=== PATIENT | female | born 1995 | race Caucasian/White ===

== ENCOUNTER → 2019-04-06 13:43 | Outpatient (BNVA) | payer OTHER, SELFPAY | PROVIDERS: Family Provider Family Medicine; PCP Family Medicine; Visit Provider Obstetrics & Gynecology | DX: Z34.90 Encounter for supervision of normal pregnancy, unspecified, unspecified trimester (principal) | CPT/HCPCS: 36415; 82950; 84315 ==

== ENCOUNTER → 2019-05-06 15:10 | Outpatient (BNVA) | payer OTHER, SELFPAY | PROVIDERS: Family Provider Family Medicine; PCP Family Medicine; Visit Provider Obstetrics & Gynecology | DX: Z01.89 Encounter for other specified special examinations (principal) | CPT/HCPCS: 84315 ==

== ENCOUNTER → 2019-05-11 08:18 | Outpatient (BNVA) | payer OTHER, SELFPAY | PROVIDERS: Family Provider Family Medicine; PCP Family Medicine; Visit Provider Obstetrics & Gynecology | DX: O09.893 Supervision of other high risk pregnancies, third trimester (principal); R73.09 Other abnormal glucose; Z3A.28 28 weeks gestation of pregnancy | CPT/HCPCS: 82951; 82952; 85027 ==

== ENCOUNTER → 2019-05-18 14:56 | Outpatient (BNVA) | payer OTHER, SELFPAY | PROVIDERS: Family Provider Family Medicine; PCP Family Medicine; Visit Provider Obstetrics & Gynecology | DX: Z01.89 Encounter for other specified special examinations (principal) | CPT/HCPCS: 84315 ==

== ENCOUNTER → 2019-05-25 14:16 | Outpatient (BNVA) | payer OTHER, SELFPAY | PROVIDERS: Family Provider Family Medicine; PCP Family Medicine; Visit Provider Obstetrics & Gynecology | DX: Z01.89 Encounter for other specified special examinations (principal) | CPT/HCPCS: 84315 ==

== ENCOUNTER → 2019-06-01 15:05 | Outpatient (BNVA) | payer OTHER, SELFPAY | PROVIDERS: Family Provider Family Medicine; PCP Family Medicine; Visit Provider Obstetrics & Gynecology | DX: O09.893 Supervision of other high risk pregnancies, third trimester (principal); O24.419 Gestational diabetes mellitus in pregnancy, unspecified control | CPT/HCPCS: 76816; 76819; 84315 ==

== ENCOUNTER → 2019-06-08 10:04 | Outpatient (BNVA) | payer OTHER, SELFPAY | PROVIDERS: Family Provider Family Medicine; PCP Family Medicine; Visit Provider Obstetrics & Gynecology | DX: O24.419 Gestational diabetes mellitus in pregnancy, unspecified control (principal); O09.893 Supervision of other high risk pregnancies, third trimester | CPT/HCPCS: 76816; 76819; 84315 ==

== ENCOUNTER → 2019-06-15 14:30 | Outpatient (BNVA) | payer OTHER, SELFPAY | PROVIDERS: Family Provider Family Medicine; PCP Family Medicine; Visit Provider Obstetrics & Gynecology | DX: O09.893 Supervision of other high risk pregnancies, third trimester (principal); O24.419 Gestational diabetes mellitus in pregnancy, unspecified control | CPT/HCPCS: 76816; 76819; 84315 ==

== ENCOUNTER → 2019-06-22 13:02 | Outpatient (BNVA) | payer OTHER, SELFPAY | PROVIDERS: Family Provider Family Medicine; PCP Family Medicine; Visit Provider Obstetrics & Gynecology | DX: O24.419 Gestational diabetes mellitus in pregnancy, unspecified control (principal) | CPT/HCPCS: 76816; 76819; 84315 ==

== ENCOUNTER → 2019-06-29 08:52 | Outpatient (BNVA) | payer OTHER, SELFPAY | PROVIDERS: Family Provider Family Medicine; PCP Family Medicine; Visit Provider Obstetrics & Gynecology | DX: O09.893 Supervision of other high risk pregnancies, third trimester (principal); O24.419 Gestational diabetes mellitus in pregnancy, unspecified control | CPT/HCPCS: 76816; 76819; 84315; 87081 ==

== ENCOUNTER → 2019-07-01 11:25 | Outpatient (BNVA) | payer OTHER, SELFPAY | PROVIDERS: Family Provider Family Medicine; PCP Family Medicine; Visit Provider Obstetrics & Gynecology | DX: O24.419 Gestational diabetes mellitus in pregnancy, unspecified control (principal) | CPT/HCPCS: 76816; 76819 ==

== ENCOUNTER → 2019-07-06 09:31 | Outpatient (BNVA) | payer OTHER, SELFPAY | PROVIDERS: Family Provider Family Medicine; PCP Family Medicine; Visit Provider Obstetrics & Gynecology | DX: O24.410 Gestational diabetes mellitus in pregnancy, diet controlled (principal); O09.893 Supervision of other high risk pregnancies, third trimester; Z3A.37 37 weeks gestation of pregnancy | CPT/HCPCS: 76816; 76819; 84315 ==

== ENCOUNTER → 2019-07-08 08:08 | Outpatient (BNVA) | payer OTHER, SELFPAY | PROVIDERS: Family Provider Family Medicine; PCP Family Medicine; Visit Provider Obstetrics & Gynecology | DX: Z36.89 Encounter for other specified antenatal screening (principal) | CPT/HCPCS: 76816; 76819 ==

== ENCOUNTER → 2019-07-13 08:47 | Outpatient (BNVA) | payer OTHER, SELFPAY | PROVIDERS: Family Provider Family Medicine; PCP Family Medicine; Visit Provider Obstetrics & Gynecology | DX: O24.419 Gestational diabetes mellitus in pregnancy, unspecified control (principal) | CPT/HCPCS: 76816; 76819; 84315 ==

== ENCOUNTER → 2019-07-15 08:11 | Outpatient (BNVA) | payer OTHER, SELFPAY | PROVIDERS: Family Provider Family Medicine; PCP Family Medicine; Visit Provider Obstetrics & Gynecology | DX: O24.419 Gestational diabetes mellitus in pregnancy, unspecified control (principal) | CPT/HCPCS: 76816; 76819 ==

== ENCOUNTER → 2019-07-19 13:20 | Outpatient (BNVA) | payer OTHER, SELFPAY | PROVIDERS: Family Provider Family Medicine; PCP Family Medicine; Visit Provider Obstetrics & Gynecology | DX: O09.893 Supervision of other high risk pregnancies, third trimester (principal); O24.410 Gestational diabetes mellitus in pregnancy, diet controlled | CPT/HCPCS: 76816; 76819 ==

== ENCOUNTER 2019-07-19 15:29 | Inpatient (IN) | payer OTHER, SELFPAY ==
[2019-07-19] VITALS (41 sets, daily range): BP systolic 0–125; BP diastolic 0–84; PULSE 69–122; RESP 16–18; TEMP 36.8; BMI 28.1
[2019-07-19 16:10] LABS: Glucose Point of Care 102 mg/dL (70-110)
[2019-07-19] MEDS: miSOPROStol 100 mcg tablet 25 MCG VAGINAL (16:37)
[2019-07-19 17:57] LABS: Basophils % 0.3 %; Eosinophils # 0.2 10^3/uL (0.0-0.8); Eosinophils % 1.9 %; Hematocrit 37.5 % (37.0-47.0); Hemoglobin 12.7 g/dL (11.5-15.3); Lymphocytes # 2.5 10^3/uL (0.8-4.8); Lymphocytes % 24.5 %; Mean Corpuscular HGB Conc 33.9 g/dL (30.0-36.0); Mean Corpuscular Hemoglobin 29.9 pg (28.0-34.0); Mean Corpuscular Volume 88.2 fL (81-99); Mean Platelet Volume 9.8 fL (7.4-10.4); Monocytes # 0.8 10^3/uL (0.2-0.9); Monocytes % 7.8 %; Neutrophils # 6.8 10^3/uL (1.8-7.7); Neutrophils % 65.1 %; Nucleated Red Blood Cells % 0 %; Platelet Count 256 10^3/cmm (130-400); Red Blood Count 4.25 10^6/uL (4.1-5.3); Red Cell Distribution Width 13.2 % (12.1-15.1); White Blood Count 10.4 10^3/uL (4.0-10.0)
[2019-07-19 19:40] LABS: Glucose Point of Care 113 mg/dL (70-110)
[2019-07-19] MEDS: lactated ringers 1,000 ML 999 ML IV (23:35)
[2019-07-19 23:55] LABS: Glucose Point of Care 81 mg/dL (70-110)
[2019-07-20] VITALS (90 sets, daily range): BP systolic 0–129; BP diastolic 0–91; PULSE 66–118; RESP 16–18; TEMP 36.4–37.2; O2SAT 94–98
[2019-07-20] MEDS: ondansetron 2 mg/ML SDV 2 mL 4 MG IVP (00:54)
[2019-07-20] MEDS: lactated ringers 1,000 ML 999 ML IV (01:05)
--- NOTE | 2019-07-20 01:32 | ANES.PREANE2 ---
Pre-Anesthetic Assessment Pre-Anesthetic Assessment: Height/Weight: Height 1.52 m Weight 65.317 kg Temp Pulse Resp BP 98.2 F 84 18 125/76 07/19/19 22:36 07/20/19 01:23 07/19/19 22:36 07/20/19 01:23 Preop Diagnosis: labor pain Proposed Procedure: epidural Social: Social History: No alcohol and No tobacco Exam: Pre-Anes Outpt Exam: alert, oriented x 3, clear to auscultation bilaterally and regular rate & rhythm Airway: Submandibular: WNL Cervical ROM: WNL MP: 2 Dentition: Full History/ROS: No significant complaints Pulmonary: Pulmonary: None reported CV/HEM: CV/HEM: None reported : : None reported Hepatic: Hepatic: None reported GI: GI: GERD Comments: with but controlled with antacids Metabolic: Comments: gestation diabetic Musc/skel: Musc/skel: None reported Neuropsych: Neuropsych: Anxiety Anesthetic Plan: ASA status: 2 Anesthesia: Eval. for regional block and Regional (specify below) Risk of > 500 ml blood loss (7ml/kg in children): No Meds/Allergies Current Medications: Current Medications Generic Name Dose Route Start Last Admin Trade Name Freq PRN Reason Stop Dose Admin Lactated Ringer's 1,000 mls @ 999 m ls/hr 07/19/19 15:48 07/20/19 01:07 Lactated Ringers IV 999 mls/hr .Q1H1M PRN Infusion Per L&D Rescitati on Protocol Ondansetron HCl 4 mg 07/19/19 15:48 07/20/19 00:54 Zofran IVP 4 mg Q4H PRN Administration NAUSEA AND VOMITI NG PFSH Anesthesia PFSH: Social History Smoking and tobacco status: never smoked Alcohol intake: never Additional social history: Female Reproductive History: : 1 Data Anesthesia CBC & Chem 7: 07/19/19 16:25 Other Labs: Laboratory Results - last 48 hr 07/19/19 07/19/19 07/19/19 16:04 16:25 19:33 WBC 10.4 H RBC 4.25 Hgb 12.7 Hct 37.5 MCV 88.2 MCH 29.9 MCHC 33.9 RDW 13.2 Plt Count 256 MPV 9.8 Neut % (Auto) 65.1 Lymph % (Auto) 24.5 [place] % (Auto) 7.8 Eos % (Auto) 1.9 Baso % (Auto) 0.3 Neut # (Auto) 6.8 Lymph # (Auto) 2.5 [place] # (Auto) 0.8 Eos # (Auto) 0.2 Baso # (Auto) 0.0 Nucleated RBC % (auto) 0 Nucleated RBCs # 0.0 POC Glucose 102 113 07/19/19 23:50 WBC RBC Hgb Hct MCV MCH MCHC RDW Plt Count MPV Neut % (Auto) Lymph % (Auto) [place] % (Auto) Eos % (Auto) Baso % (Auto) Neut # (Auto) Lymph # (Auto) [place] # (Auto) Eos # (Auto) Baso # (Auto) Nucleated RBC % (auto) Nucleated RBCs # POC Glucose 81 Cardiac Studies: No Data to Display
[2019-07-20] MEDS: lactated ringers 1,000 ML 125 ML IV (02:15)
--- NOTE | 2019-07-20 02:20 | P.ANES_ITS ---
Anesthesia Procedures Procedure/Date: 07/20/19 epidural Procedure Narrative: epidural complete, first attempt blood noted in tubing, catheter removed then replaced with negative test dose and aspiration, bolus given, epidural pump initiated with CANE FEEDER education given, vitals taken during procedure using OBIX system and satisfactory throughout, patient admits to decrease pain, report of procedure to OB RN Epidural: Time Out Performed: Yes Consents Signed: Procedure Consent Consent: requested by attending/covering physician, from patient, risks and benefits reviewed and patient agrees to proceed Lumbar Level: L3-L4 Epidural position: sitting Epidural procedure: sterile prep of area, 1% lidocaine to numb the area (3 mL), 18 g needle, negative for paresthesia passed, neg for paresthesia, test dose given, 1.5% xylocaine 1:200k epi (5 mL), 0.2% Ropivacaine bolus ml (5 mL), placed PCEA, no systemic response, sterile dressing applied, L.U.D. no apparent complications and 0.2% Ropiavacaine @ mls/hr (13 mL/hr)
[2019-07-20 04:07] LABS: Glucose Point of Care 93 mg/dL (70-110)
--- NOTE | 2019-07-20 07:56 | PC.NURSE ---
pt pushing staff at bedside
--- NOTE | 2019-07-20 08:57 | P.PCNOB_ITS ---
Delivery Note: Date of delivery: July 20, 2019 Pre-delivery diagnoses: Term at 39+3 weeks. Gestational diabetes. 2 vessel Umbilical cord Post-delivery diagnoses: Same as above Procedure: Spontaneous vaginal delivery Op report anesthesia: Epidural Delivering Physician: Kenrick Chicas M.D. Estimated blood loss (mL): 500 Delivery: The patient was noted to be complete and pushing, so was placed in the dorsal lithotomy position, prepped and draped in the usual sterile fashion for a vaginal delivery. Pt. Noted to have epidural anesthesia. At [] the patient delivered a Viable 39+3 female infant weighing 2945 g with scores of 8 and 9 at one and five minutes, respectively. The vertex was delivered spontaneously over Intact perineum. The patient was asked to push and the head delivered spontaneously in the MARVA position, over an intact perineum. A nuchal cord was checked and 1 noted, and Relieved around head as necessary. The anterior shoulder delivered easily and the posterior shoulder followed. The remainder of the infant was easily delivered and the oropharynx and nasopharynx was bulb suctioned. The infant was noted to have spontaneous cry and spontaneous movement of all four extremities. The cord was clamped x 2 and cut and noted to have 2 arteries and one vein. The was passed to the Mother's abdomen where Nursing personnel were in attendance. Core blood sample was not obtained. The placenta delivered intact Spontaneously and the uterus Was explored. 20 units of Pitocin was placed in the IV bag to firm the uterus. Examination of the cervix and vaginal vault did not reveal any lacerations. A vaginal pack was then placed. Examination of the perineum showed Second-degree Perineal laceration. The Laceration was repaired with 3-0 Vicryl in the normal fashion in a running non locking fashion to reapproximate the laceration in layers. The vaginal pack was then removed. The patient tolerated this procedure well, and recovered in L&D with her infant To the OB kay. All sponge and needle counts were correct. A&P Assessment and plan (1) Term delivered: Status: Acute Coding Level of Care Code Acute Bowling Alley Operator for Chg Fwd Diagnoses Term delivered O80
[2019-07-20] MEDS: oxytocin 30 UNIT/500 ML BAG 500 UNIT IV (09:02)
--- NOTE | 2019-07-20 10:25 | PC.NURSE ---
Pt in lithotomy position, pushing
[2019-07-20] MEDS: benzocaine-menthol 78 gm Canister 1 SPRAY TOPICAL (11:17)
[2019-07-20] MEDS: lanolin oint 7 gm 1 APPLIC TOPICAL (11:17)
[2019-07-20] MEDS: docusate sodium 100 mg Capsule PO (21:19)
[2019-07-20 23:27] LABS: Hematocrit 34.4 % (37.0-47.0); Hemoglobin 11.4 g/dL (11.5-15.3); Mean Corpuscular HGB Conc 33.1 g/dL (30.0-36.0); Mean Corpuscular Hemoglobin 29.4 pg (28.0-34.0); Mean Corpuscular Volume 88.7 fL (81-99); Mean Platelet Volume 9.5 fL (7.4-10.4); Platelet Count 187 10^3/cmm (130-400); Red Blood Count 3.88 10^6/uL (4.1-5.3); Red Cell Distribution Width 13.3 % (12.1-15.1); White Blood Count 15.9 10^3/uL (4.0-10.0)
[2019-07-21 06:10] VITALS: BP 114/86; PULSE 76; RESP 16; TEMP 36.6
--- NOTE | 2019-07-21 07:07 | ANE.PACU2 ---
 Inpatient post-anesthesia follow up: Airway intact: Yes Vital signs: Temperature 97.8 F Pulse Rate 76 Respiratory Rate 16 Blood Pressure 114/86 Pulse Oximetry 98 Oxygen Delivery Me thod Room Air Oxygen Flow Rate Fraction of Inspir ed Oxygen Hydration adequate: Yes Nausea and vomiting: No Mental status: Baseline Additional Comments: no LE weakness, urinating ok, no headaches, no signs of infection at neuraxial site
[2019-07-21] MEDS: docusate sodium 100 mg Capsule PO (08:11)
[2019-07-21] MEDS: prenatal vitamin Capsule 1 CAP PO (08:11)
[2019-07-21 10:42] VITALS: BP 108/75; PULSE 78; RESP 16; TEMP 36.8; O2SAT 98
--- NOTE | 2019-07-21 14:33 | PM.OBGYDC ---
Discharge Providers DIRECTOR OF ADMISSIONS Date of Admission: 07/19/19 15:29 Date of Discharge: 07/21/19 Attending Provider at Admission: Kenrick Chicas MD Attending Provider at Discharge: Kenrick Chicas MD Primary Care Provider: Savage Marinelli DO Diagnoses at Discharge Discharge Diagnosis (1) Term delivered: Status: Acute Problem details: Status post spontaneous vaginal delivery day 1 Reason for Visit Reason for Visit: Reason For Visit: induction Hospital Course Hospital Course: 24-year-old female with an estimated gestational age at 39 weeks 3 days care complicated by gestational diabetes, umbilical cord with 2 vessels and pyelectasis. Admitted to the hospital for induction. 1 Cytotec intravaginally was given shortly after she started with labor and progressed to have a spontaneous vaginal delivery with out complications. observation was uneventful. She is afebrile and hemodynamically stable, tolerating diet well, ambulating without difficulty. Physical Exam Const: COMMON NORMALS: no apparent distress, oriented x3, no limitations, alert and well nourished EXAM LIMITATIONS: no physical limitations GENERAL APPEARANCE: cooperative, comfortable and well kempt NUTRITIONAL APPEARANCE: overweight ORIENTATION/CONSCIOUSNESS: Yes awake HENMT: COMMON NORMALS: normocephalic, head/scalp atraumatic, hearing grossly normal bilaterally and external ears normal HEAD & SCALP: normocephalic and atraumatic FACE & SINUS: normal facial exam EXTERNAL EAR: Yes external ears normal Eye: COMMON NORMALS: PERRL and conjunctivae normal GENERAL EYE: normal appearance of both eyes ALIGNMENT: Yes alignment normal EYELID: eyelids normal CONJUNCTIVA: Yes conjunctivae normal SCLERA: sclerae normal PUPIL: Yes PERRL Neck/C-Spine: COMMON NORMALS: full ROM, supple and thyroid normal GENERAL: Yes normal visual inspection and No JVD THYROID: thyroid normal Lymph: LYMPHATIC: no lymphadenopathy noted Chest: CHEST: Yes symmetrical chest wall rise BREAST/AXILLA INSPECTION: Yes other (Engorged) NIPPLE/AREOLA: Yes nipple discharge Nipple discharge: cloudy Resp: COMMON NORMALS: normal respiratory effort, no retractions and no use of accessory muscles EFFORT & INSPECTION: Yes able to speak in complete sentences Cardio: COMMON NORMALS: regular rate and regular rhythm RATE: regular rate RHYTHM: regular rhythm GI: COMMON NORMALS: normal to inspection, nondistended, normoactive bowel sounds, soft to palpation and non-tender INSPECTION: Yes normal to inspection PALPATION: Yes soft : SPECULUM EXAM - VAGINA: Yes vaginal bleeding Amount: other (Normal lochia) BIMANUAL EXAM - VAGINA & UTERUS: Yes uterus non-tender and Yes uterus enlarged (Below umbilicus.) OB/EXTERNAL & SPECULUM: vaginal bleeding Extremity: COMMON NORMALS: normal to inspection, full ROM, no clubbing, cyanosis or edema, no calf tenderness and no pedal edema Neuro: COMMON NORMALS: oriented x3 SENSORIUM/ORIENTATION: Yes alert SPEECH: speech normal GAIT: Yes normal gait Psych: COMMON NORMALS: mental status grossly normal, thought process normal and speech normal APPEARANCE: Yes grossly normal and Yes well kempt ATTITUDE: Yes calm and Yes engaged ACTIVITY/MOTOR BEHAVIOR: Yes appropriate eye contact SPEECH: Yes normal speech THOUGHT PROCESS: normal thought process THOUGHT CONTENT: Yes normal thought content ATTENTION/CONCENTRATION: Yes attention grossly intact MEMORY/COGNITION: Yes memory grossly intact INSIGHT: insight good JUDGEMENT: judgment good Skin: COMMON NORMALS: no rashes or lesions noted GENERAL SKIN EXAM: no rashes or lesions noted Urinary Catheter Management^: [place]: Cath Placed During This Visit: yes, but has since been removed by the nurse Reason for Continuing Indwelling Catheter: Other Urinary Catheter Date of Insertion: 07/20/19 Urinary Catheter Time of Insertion: 02:35 Date Urinary Catheter Removed: 07/20/19 Time Urinary Catheter Discontinued: 07:15 Discharge Data Data Completed and Pending: Labs from last 24 hours 07/20/19 23:20 WBC 15.9 H RBC 3.88 L Hgb 11.4 L Hct 34.4 L MCV 88.7 MCH 29.4 MCHC 33.1 RDW 13.3 Plt Count 187 MPV 9.5 Vitals: Last Vital Signs Temp 98.2 F 07/21/19 10:42 Pulse 78 07/21/19 10:42 Resp 16 07/21/19 10:42 BP 108/75 07/21/19 10:42 Pulse Ox 98 07/21/19 10:42 Discharge Plan Discharge Patient Disposition: Home, Self-Care Condition: Stable Prescriptions: New ibuprofen 800 mg Tablet 800 mg PO TID Qty: 60 RF: 0 acetaminophen 325 mg Tablet 650 mg PO Q6H PRN (Reason: Mild To Moderate Pain) Qty: 60 RF: 0 ferrous sulfate 325 mg (65 mg iron) tablet 325 mg PO DAILY Qty: 60 RF: 0 Continued prenat.vits,she,[id number] Tablet 1 tab PO DAILY RF: 0 No Action (DME) blood-glucose meter [Blood Glucose Monitoring] Kit See Rx Instructions .ROUTE .MEDSUPPLY Qty: 1 RF: 0 Discharge Diet: Advance as tolerated Discharge Activity: Increase activity as tolerated Patient Instructions: Your Baby (GEN), and the Working Mom (GEN), How to Hold and Breastfeed Your Baby (GEN), and Nipple Soreness (GEN), and Plugged Ducts (GEN), How to Increase Your Milk Supply (GEN), and Your Diet (GEN), OB Discharge Report, OB Food/Drug Interaction Guide, OB Vaginal Deliveries - [facility] Activity Restrictions/Additional Instructions: Pelvic rest for 6 weeks (no sex, no tampons, no vaginal douches). Return to the emergency room if any fever, increased bleeding or pain. Discharge Attestations DIRECTOR OF ADMISSIONS Time Spent in Discharge Care*: greater than 30 min Status at Discharge: Cognitive status at discharge: cognitively intact, Behavioral status at discharge: cooperative, Functional status at discharge: independent ambulation Coding Level of Care Code Acute Ceramic Artist for g Fwd Exam Comprehensive Diagnoses Term delivered O80
[2019-07-21 15:56] VITALS: BP 112/77; PULSE 86; RESP 18; TEMP 36.7; O2SAT 98
[2019-07-21 16:20] VITALS: BP 112/77; PULSE 86; RESP 18; TEMP 36.7; O2SAT 98
== END 2019-07-21 16:20 | disposition home or self-care (01) | DRG 807 ==
PROVIDERS: Admitting Provider Obstetrics & Gynecology; Family Provider Family Medicine; PCP Family Medicine; Visit Provider Obstetrics & Gynecology
DX: O24.420 Gestational diabetes mellitus in childbirth, diet controlled (principal); Z37.0 Single live birth; Z3A.39 39 weeks gestation of pregnancy; O99.344 Other mental disorders complicating childbirth; F41.9 Anxiety disorder, unspecified; O69.2XX0 Labor and delivery complicated by other cord entanglement, with compression, not applicable or unspecified; O70.1 Second degree perineal laceration during delivery
CPT/HCPCS: 12345; 36416; 51702; 59409; 82962; 84315; 85025; 85027; 96375; J2405; J2795

== ENCOUNTER → 2024-01-13 08:30 | Outpatient (BNVA) | payer OTHER, SELFPAY | PROVIDERS: Family Provider Family Medicine; PCP Family Medicine; Visit Provider Obstetrics & Gynecology | DX: Z12.4 Encounter for screening for malignant neoplasm of cervix (principal) | CPT/HCPCS: 87624 ==

== ENCOUNTER → 2024-03-11 09:00 | Outpatient (BNVA) | payer OTHER, SELFPAY | PROVIDERS: Family Provider Family Medicine; PCP Family Medicine; Visit Provider Nurse Practitioner Family | DX: Z13.6 Encounter for screening for cardiovascular disorders (principal); N92.0 Excessive and frequent menstruation with regular cycle; H18.519 Endothelial corneal dystrophy, unspecified eye | CPT/HCPCS: 80053; 80061; 82672; 83001; 83002; 83036; 84403; 84443; 85025 ==

== ENCOUNTER → 2024-09-20 07:46 | Outpatient (BNVA) | payer OTHER, SELFPAY | PROVIDERS: Family Provider Family Medicine; PCP Nurse Practitioner Family; Visit Provider Nurse Practitioner Women's Health | DX: N91.2 Amenorrhea, unspecified (principal); Z32.01 Encounter for pregnancy test, result positive | CPT/HCPCS: 81025; 84702; 86850; 86900 ==

== ENCOUNTER → 2024-09-29 10:32 | Outpatient (BNVA) | payer OTHER, SELFPAY | PROVIDERS: Family Provider Family Medicine; PCP Nurse Practitioner Family; Visit Provider Nurse Practitioner Women's Health | DX: Z36.87 Encounter for antenatal screening for uncertain dates (principal) | CPT/HCPCS: 76801 ==

== ENCOUNTER → 2024-10-07 10:45 | Outpatient (BNVA) | payer OTHER, SELFPAY | PROVIDERS: Family Provider Family Medicine; PCP Nurse Practitioner Family; Visit Provider Nurse Practitioner Women's Health | DX: Z34.90 Encounter for supervision of normal pregnancy, unspecified, unspecified trimester (principal); Z34.80 Encounter for supervision of other normal pregnancy, unspecified trimester | CPT/HCPCS: 80307; 82950; 84315; 84443; 85025; 86592; 86762; 86803; 86850; 86900; 87086; 87340; 87491; 87591; 87661; 87806 ==

== ENCOUNTER → 2024-10-11 13:24 | Outpatient (BNVA) | payer OTHER, SELFPAY | PROVIDERS: Family Provider Family Medicine; PCP Nurse Practitioner Family; Visit Provider Obstetrics & Gynecology | DX: Z34.80 Encounter for supervision of other normal pregnancy, unspecified trimester (principal) | CPT/HCPCS: 84315; 87389 ==

== ENCOUNTER → 2024-11-15 14:35 | Outpatient (BNVA) | payer OTHER, SELFPAY | PROVIDERS: Family Provider Family Medicine; PCP Nurse Practitioner Family; Visit Provider Obstetrics & Gynecology | DX: Z36.9 Encounter for antenatal screening, unspecified (principal) | CPT/HCPCS: 76805 ==

== ENCOUNTER → 2024-11-24 13:58 | Outpatient (BNVA) | payer OTHER, SELFPAY | PROVIDERS: Family Provider Family Medicine; PCP Nurse Practitioner Family; Visit Provider Obstetrics & Gynecology | DX: Z34.90 Encounter for supervision of normal pregnancy, unspecified, unspecified trimester (principal) | CPT/HCPCS: 84315 ==

== ENCOUNTER → 2024-12-28 13:32 | Outpatient (BNVA) | payer OTHER, SELFPAY | PROVIDERS: Family Provider Family Medicine; PCP Nurse Practitioner Family; Visit Provider Nurse Practitioner Women's Health | DX: O09.299 Supervision of pregnancy with other poor reproductive or obstetric history, unspecified trimester (principal); Z86.32 Personal history of gestational diabetes; Z3A.00 Weeks of gestation of pregnancy not specified | CPT/HCPCS: 82950; 84315 ==

== ENCOUNTER 2025-01-05 13:25 | Outpatient (CLI) | payer OTHER, SELFPAY ==
--- NOTE | 2025-01-05 13:30 | USR_ITS ---
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 COMPARISON: US OB >= 14 weeks fetus [id number] 11/15/2024 2:52 PM FINDINGS: Gestation: Single live intrauterine gestation. heart rate: 146 bpm presentation and position: Cephalic. Placenta: Unremarkable. No subchorionic bleed. Placenta is posterior. Amniotic fluid (Qualitative): Amniotic fluid is normal for gestational age. ANATOMY: Previously described choroid plexus cysts essence resolved. Remaining anatomy is normal. BIOMETRY: Gestational age (AUA): 27 weeks and 4 days Estimated due date (AUA): 04/02/2025 Estimated weight: 1095.37 g. EFW by AC, BPD, FL, HC, [place] 1985 , this is within the 43.2 percentile Biparietal diameter (BPD): 6.75 cm. EGA (BPD) is 27 w 1 d. 30 % percentile Head circumference (HC): 25.71 cm. EGA (HC) is 28 w 0 d. 36.7 % percentile Abdominal circumference (AC): 23.53 cm. EGA (AC) is 27 w 6 d. 55.3 % percentile Femur length (FL): 5.06 cm. EGA (FL) is 27 w 1 d. 27 % percentile HC/AC: 1.09. (Normal range: 1.03 - 1.22) FL/HC: 19.68. (Normal range: 18.71 - 20.51) FL/BPD: 74.96. (Normal range: 71 - 87) FL/AC: 21.5. (Normal range: 20 - 24) MATERNAL: Uterus: Unremarkable. Cervix: Cervical length measures 4 cm. Long and closed. Right ovary/adnexa: Obscured by lack of adequate acoustic window. Left ovary/adnexa: Obscured by lack of adequate acoustic window. Intraperitoneal space: No intraperitoneal free fluid. US/US OB >= 14 weeks fetus [id number] IMPRESSION: Single live intrauterine gestation. Resolve involution of previously described choroid plexus cyst.
== END 2025-01-05 13:26 | disposition home or self-care (01) ==
LOC: RAD 13:27
PROVIDERS: Visit Provider Obstetrics & Gynecology
DX: Z34.92 Encounter for supervision of normal pregnancy, unspecified, second trimester (principal); Z3A.27 27 weeks gestation of pregnancy; G93.0 Cerebral cysts
CPT/HCPCS: 76805; 82951; 82952

== ENCOUNTER 2025-01-12 13:01 | Outpatient (RCR) | payer OTHER, SELFPAY | END 2025-01-28 23:59 | disposition home or self-care (01) | LOC: SPT 13:01 | PROVIDERS: Visit Provider Nurse Practitioner Women's Health | DX: M25.559 Pain in unspecified hip (principal) | CPT/HCPCS: 97110; 97161 ==

== ENCOUNTER → 2025-01-13 13:57 | Outpatient (BNVA) | payer OTHER, SELFPAY | PROVIDERS: Visit Provider Nurse Practitioner Women's Health | DX: O09.299 Supervision of pregnancy with other poor reproductive or obstetric history, unspecified trimester (principal); Z86.32 Personal history of gestational diabetes | CPT/HCPCS: 84315; 85025 ==

== ENCOUNTER → 2025-01-26 13:49 | Outpatient (BNVA) | payer OTHER, SELFPAY | PROVIDERS: Visit Provider Obstetrics & Gynecology | DX: O09.299 Supervision of pregnancy with other poor reproductive or obstetric history, unspecified trimester (principal); Z3A.00 Weeks of gestation of pregnancy not specified; Z86.32 Personal history of gestational diabetes | CPT/HCPCS: 84315 ==

== ENCOUNTER 2025-01-29 05:00 | Outpatient (RCR) | payer OTHER, SELFPAY | END 2025-02-27 23:59 | disposition home or self-care (01) | LOC: SPT 05:00 | PROVIDERS: PCP Nurse Practitioner Family; Visit Provider Nurse Practitioner Women's Health | DX: M25.559 Pain in unspecified hip (principal) | CPT/HCPCS: 97110 ==

== ENCOUNTER → 2025-02-09 13:30 | Outpatient (BNVA) | payer OTHER, SELFPAY | PROVIDERS: Family Provider Family Medicine; PCP Nurse Practitioner Family; Visit Provider Obstetrics & Gynecology | DX: O09.299 Supervision of pregnancy with other poor reproductive or obstetric history, unspecified trimester (principal); Z86.32 Personal history of gestational diabetes; Z3A.00 Weeks of gestation of pregnancy not specified | CPT/HCPCS: 84315 ==

== ENCOUNTER 2025-03-09 16:26 | Outpatient (RCR) | payer OTHER, SELFPAY | END 2025-03-17 14:35 | disposition home or self-care (01) | LOC: SPT 16:26 | PROVIDERS: PCP Nurse Practitioner Family; Visit Provider Nurse Practitioner Women's Health | DX: M25.559 Pain in unspecified hip (principal) | CPT/HCPCS: 97110 ==

== ENCOUNTER → 2025-03-10 13:27 | Outpatient (BNVA) | payer OTHER, SELFPAY | PROVIDERS: Family Provider Family Medicine; PCP Nurse Practitioner Family; Visit Provider Obstetrics & Gynecology | DX: Z34.80 Encounter for supervision of other normal pregnancy, unspecified trimester (principal); Z3A.36 36 weeks gestation of pregnancy | CPT/HCPCS: 84315; 87081 ==

== ENCOUNTER → 2025-03-16 13:49 | Outpatient (BNVA) | payer OTHER, SELFPAY | PROVIDERS: Family Provider Family Medicine; PCP Nurse Practitioner Family; Visit Provider Obstetrics & Gynecology | DX: Z34.80 Encounter for supervision of other normal pregnancy, unspecified trimester (principal) | CPT/HCPCS: 84315 ==

== ENCOUNTER → 2025-03-21 13:30 | Outpatient (BNVA) | payer OTHER, SELFPAY | PROVIDERS: Family Provider Family Medicine; PCP Nurse Practitioner Family; Visit Provider Obstetrics & Gynecology | DX: Z34.80 Encounter for supervision of other normal pregnancy, unspecified trimester (principal) | CPT/HCPCS: 84315 ==

== ENCOUNTER → 2025-03-30 14:00 | Outpatient (BNVA) | payer OTHER, SELFPAY | PROVIDERS: Family Provider Family Medicine; PCP Nurse Practitioner Family; Visit Provider Obstetrics & Gynecology | DX: Z34.80 Encounter for supervision of other normal pregnancy, unspecified trimester (principal) | CPT/HCPCS: 84315 ==